=== PATIENT | female | born 2000 | race Hispanic/Latino ===

== ENCOUNTER 2019-04-09 14:35 | Emergency (ER) | payer OTHER ==
[2019-04-09] MEDS ORDERED: KEPPRA 1,000 MG/NS 0.75% 100ML 1,000 MG/100 ML BAG IV ONE (15:19)
[2019-04-09] MEDS ORDERED: NORCO 5/325 PO ONE (15:34)
--- NOTE | 2019-04-09 15:36 | Emergency Department Report ---
HPI - General Chief Complaint: Seizure Time Seen by Provider: 04/09/19 14:55 - HPI HPI: 19-year-old female presents to the emergency department via EMS from home with a complaint of a witnessed seizure just prior to arrival. The patient's mother's bedside and says that she saw her shaking and seizing and it lasted for about 10 minutes. Patient apparently has some type of a seizure history but no particular diagnosis. She last had a seizure about one week ago and the seizures originally started about one year ago. The patient just moved here from [place] a few weeks ago and therefore does not have any local primary care physician or neurologist. She is not on any seizure medications. They both say that she was told that she may have pseudoseizures. ED Past Medical Hx - Past Medical History Previous Medical History?: Yes Hx Hypertension: Yes - Surgical History Additional Surgical History: "tubes" - Social History Smoking Status: Current Every Day Smoker Substance Use Type: Marijuana - Medications Home Medications: Home Medications Medication Instructions Recorded Confirmed Last Taken Type Azithromycin [Zithromax Z-MASHA] 250 mg PO DAILY #6 tablet 12/05/14 Unknown Rx Ibuprofen [Motrin] 800 mg PO Q8H PRN #20 tablet 12/05/14 Unknown Rx levETIRAcetam [Keppra TAB] 500 mg PO BID #60 tablet 04/09/19 Unknown Rx ED Review of Systems ROS: Stated complaint: SEIZURE Other details as noted in HPI Comment: All other systems reviewed and negative Constitutional: denies: chills, fever Eyes: denies: eye pain, vision change ENT: denies: ear pain, throat pain Respiratory: denies: cough, shortness of breath Cardiovascular: denies: chest pain, palpitations Gastrointestinal: denies: abdominal pain, vomiting Genitourinary: denies: dysuria, discharge Musculoskeletal: myalgia. denies: joint swelling Skin: denies: rash, lesions Neurological: headache, other (seizure) Physical Exam - Physical Exam Vital Signs: Vital Signs 04/09/19 15:16 Temperature 98.3 F Pulse Rate 46 L Respiratory 13 Rate Blood Pressure 165/94 [Left] O2 Sat by Pulse 99 Oximetry Physical Exam: GENERAL: The patient is well-developed well-nourished. HENT: Normocephalic. Atraumatic. Patient has moist mucous membranes. EYES: Extraocular motions are intact. Pupils equal reactive to light bilaterally. No nystagmus. NECK: Supple. Trachea is midline. CHEST/LUNGS: Clear to auscultation. There is no respiratory distress noted. HEART/CARDIOVASCULAR: Regular. There is mild bradycardia. There is no murmur. ABDOMEN: Abdomen is soft, nontender. Patient has normal bowel sounds. There is no abdominal distention. SKIN: Skin is warm and dry. NEURO: The patient is awake, alert, and oriented. The patient is cooperative. The patient has no focal neurologic deficits. The patient has normal speech. Cranial nerves II through XII grossly intact. No pronator drift. No dysmetria. MUSCULOSKELETAL: There is no tenderness or deformity. There is no limitation range of motion. There is no evidence of acute injury. ED Course Vital Signs 04/09/19 15:16 Temperature 98.3 F Pulse Rate 46 L Respiratory 13 Rate Blood Pressure 165/94 [Left] O2 Sat by Pulse 99 Oximetry ED Medical Decision Making - Lab Data Result diagrams: 04/09/19 15:29 04/09/19 15:29 - EKG Data -: EKG Interpreted by Nd EKG shows normal: sinus rhythm, axis, intervals, QRS complexes, ST-T waves Rate: bradycardia (49 bpm) - EKG Data When compared to previous EKG there are: previous EKG unavailable Interpretation: other (sinus rhythm, low voltage, rate of 49 bpm) - Radiology Data Radiology results: report reviewed PROCEDURE: CT HEAD/BRAIN WO CON TECHNIQUE: Computerized tomography of the head was performed without contrast material. CT DOSE LENGTH PRODUCT: 1333.10 mGy-cm. HISTORY: Seizure COMPARISONS: None currently available. FINDINGS: There is no evidence for acute ischemia. There is no hemorrhage. There is no midline shift. There is no hydrocephalus. There is no mass. Age appropriate perez-white matter attenuation is noted. There is no calvarial fracture. The temporal bones demonstrate aerated mastoid air cells. The middle ears appear unremarkable. Paranasal sinuses are unremarkable. Globes are intact. IMPRESSION: * No acute intracranial findings. This document is electronically signed by Doc Austin MD., Apr 09 2019 05:28:14 PM ET Transcribed By: TYM Dictated By: DOC AUSTIN MD Electronically Authenticated By: DOC AUSTIN MD Signed Date/Time: 04/09/19 1630 - Medical Decision Making This patient presents to the emergency department with a complaint of having a seizure just prior to arrival that was witnessed by her mother. Since being in the emergency department, the patient is an awake and alert, or easily arousable if resting, and there has been no further seizure-like activity. On examination she does not have any focal, motor or sensory deficits and her cranial nerves are intact. CT scan of the head without contrast was done that does not show any bleed, shift, mass, ischemia, or any other acute process. EKG shows some bradycardia with a heart rate of 49 but otherwise no signs of any ST elevation [place], ischemia, or significant dysrhythmia. Labs have been unremarkable including CBC, metabolic panel, urinalysis and blood alcohol level. The patient is not . The urine drug screen positive only for marijuana. The patient was reevaluated multiple times over multiple hours and there has been no further seizure-like activity. She was given a loading dose of Keppra. The patient appears safe for discharge home at this time. She's been given referrals for primary care and neurology. She will be started on Keppra. She will return to the ER with any worsening of her symptoms or any acute distress. - Differential Diagnosis epilepsy, pseudoseizures, substance abuse, dysrhythmia Critical Care Time: No Critical care attestation.: If time is entered above; I have spent that time in minutes in the direct care of this critically ill patient, excluding procedure time. ED Disposition Clinical Impression: Seizure Disposition: DC-01 TO HOME OR SELFCARE Is pt being admited?: No Condition: Stable Instructions: Recurrent Seizures Adult (ED) Additional Instructions: Please follow up with a primary care physician and neurologist as soon as possible. Return to the emergency department with any further seizure-like activity, and if any acute distress. I'm starting you on a seizure medication called Keppra that is to be taken twice daily. Prescriptions: levETIRAcetam [Keppra TAB] 500 mg PO BID #60 tablet Referrals[facility] [Outside] - [facility] [Outside] - [facility] [Outside] - [facility] [Outside] - [facility] DUANE TERAN MD [Referring] - [facility] NIMISHA DEJESUS MD [Staff Physician] - [facility] Time of Disposition: 18:36
[2019-04-09 15:38] LABS: Basophils # (Auto) 0.1 K/mm3 (0.0-0.1); Basophils % (Auto) 1.2 % (0.0-1.8); Eosinophils # (Auto) 0.3 K/mm3 (0.0-0.4); Eosinophils % (Auto) 4.4 % (0.0-4.3); Hematocrit 39.4 % (30.3-42.9); Hemoglobin 13.1 gm/dl (10.1-14.3); Lymphocytes # (Auto) 3.5 K/mm3 (1.2-5.4); Lymphocytes % (Auto) 48.3 % (13.4-35.0); Mean Corpuscular HGB Conc 33 % (30-34); Mean Corpuscular Volume 92 fl (79-97); Monocytes # (Auto) 0.6 K/mm3 (0.0-0.8); Monocytes % (Auto) 8.2 % (0.0-7.3); Platelet Count 285 K/mm3 (140-440); Red Blood Count 4.27 M/mm3 (3.65-5.03); Red Cell Distribution Width 15.2 % (13.2-15.2)
[2019-04-09 15:45] LABS: Bacteria,Urine 1+ /HPF (Negative); Bilirubin,Urine NEG (Negative); Blood,Urine SM (Negative); Color,Urine Straw (Yellow); Mucus,Urine FEW /HPF; Protein,Urine <15 mg/dL mg/dL (Negative); Urobilinogen,Urine < 2.0 mg/dL (<2.0)
[2019-04-09 15:52] LABS: Amphetamine Screen,Urine PRESUMPTIVE NEGATIVE; Benzodiazepines Screen,Urine PRESUMPTIVE NEGATIVE; Cocaine Screen,Urine PRESUMPTIVE NEGATIVE; Methadone Screen,Urine PRESUMPTIVE NEGATIVE; Opiate Screen,Urine PRESUMPTIVE NEGATIVE
[2019-04-09 15:57] LABS: Alanine Aminotransferase 7 units/L (7-56); BUN/Creatinine Ratio 18; Blood Urea Nitrogen 9 mg/dL (7-17); Calcium 9.3 mg/dL (8.4-10.2); Hemolysis Index 6
[2019-04-09 16:17] LABS: Cannabinoid Screen,Urine PRESUMPTIVE POSITIVE
--- NOTE | 2019-04-09 16:30 | Cat Scan Report ---
PROCEDURE: CT HEAD/BRAIN WO CON TECHNIQUE: Computerized tomography of the head was performed without contrast material. CT DOSE LENGTH PRODUCT: 1333.10 mGy-cm. HISTORY: Seizure COMPARISONS: None currently available. FINDINGS: There is no evidence for acute ischemia. There is no hemorrhage. There is no midline shift. There is no hydrocephalus. There is no mass. Age appropriate perez-white matter attenuation is noted. There is no calvarial fracture. The temporal bones demonstrate aerated mastoid air cells. The middle ears appear unremarkable. Paranasal sinuses are unremarkable. Globes are intact. IMPRESSION: * No acute intracranial findings. This document is electronically signed by Doc Diana MD., Apr 09 2019 05:28:14 PM ET
[2019-04-09 19:16] VITALS: BP 128/74
== END 2019-04-09 19:19 | disposition home or self-care (01) ==
LOC: ED 14:35
DX: R56.9 Unspecified convulsions (principal); I10 Essential (primary) hypertension; F17.200 Nicotine dependence, unspecified, uncomplicated; F12.90 Cannabis use, unspecified, uncomplicated; Z88.8 Allergy status to other drugs, medicaments and biological substances; Z91.040 Latex allergy status; Z91.013 Allergy to seafood
CPT/HCPCS: 36415; 70450; 80053; 80307; 81001; 82550; 84703; 85025; 93005; 93010; 96374; 99285; G0480; J1953; 80320